=== PATIENT | male | born 1955 | race Caucasian/White ===

== ENCOUNTER 2017-07-20 13:16 | Emergency (ER) | payer OTHER ==
[~2017-07-20] VITALS: Ht 175.3 cm; Wt 71.5 kg
--- NOTE | ~2017-07-20 | CT14 ---
[facility] A Service of [facility] RADIOLOGY TEXT RESULTS PATIENT: ROBYN PATEL LOCATION: [facility] : 57 UNIT #: [id number] AGE: [address]: Clementina Bagley MD SEX: M ORDER DR: [id number] [facility] [address] [place], [place] [address] [id number] MR#: [id number] #: [id number] NAME: ROBYN PATEL : 1955 SEX: M STUDY DATE/TIME: 07/20/2017 13:49 UNIT: [facility] ROOM: STUDY DESCRIPTION: CT Angio Abdomen and Pelvis Attending Physician: Clementina Bagley M.D. Ordering Physician: Clementina Bagley M.D. Primary Care Physician: Nabil Brady M.D. MEDICAL IMAGING REPORT This report is preliminary unless electronic signature is present EXAMINATION CT angiography of the abdomen and pelvis with IV contrast. DATE 07/20/2017, at 13:49. HISTORY Abdominal aortic aneurysm with rupture on noncontrast CT abdomen earlier today. Abdominal pain, back pain for [address] abdomen and pelvis without contrast, 07/20/2017 at 12:38. PROCEDURE 2 mm axial images after IV contrast administration in the arterial phase through the abdomen and pelvis. Enteric contrast not administered. Sagittal and coronal 3-D MIP reformatted images were obtained. This CT exam was performed with one or more of the following radiation dose reduction techniques: automatic exposure control, adjustment of mA and/or kV according to patient size, and iterative reconstruction. FINDINGS ARTERIAL ANATOMY: Findings consistent with ruptured abdominal aortic aneurysm. Intramural hematoma is demonstrated along the, predominately on the left lateral and posterolateral margin of the dominant component of the aneurysm sac. The aneurysm measures approximately 8 cm craniocaudally. In the axial plane, the aneurysm measures of 7.1 x 5.3 cm. No active IV contrast extravasation is seen at this time. At the superior margin of the aneurysm sac, there is a focal ulcerative plaque or pseudoaneurysm along the left posterior margin measuring 1.8 x 1.3 cm. Extensive irregular plaquing is seen within the upper abdominal aorta infrarenal segment. [facility]. [facility] A Service of [facility] RADIOLOGY TEXT RESULTS PATIENT: ROBYN PATEL [id number] 57 UNIT #: [id number] AGE: [address]: Clementina Bagley MD SEX: M ORDER DR: There is extensive irregular mural plaquing within the proximal left common iliac artery with probable [id number] luminal stenosis. There is fusiform aneurysm of the right common iliac artery measuring 2.6 cm. Continuing external iliac arteries are patent. Suspected stenosis of the proximal left internal and external iliac arteries due to the presence of atherosclerotic plaquing. Mild atherosclerotic disease in the common femoral arteries without flow-limiting stenosis. Imaged portions of the superficial femoral and profunda femoral arteries appear patent. Celiac artery, SMA are widely patent. ANTONI appears patent. Moderate atherosclerotic plaquing of the bilateral renal arteries with mild right greater than left renal artery stenosis. Imaged portion of the distal descending thoracic aorta is normal. Lung bases are free of consolidation, but [id number] emphysematous changes are present. Extensive multiple low-density lesions are scattered throughout the left kidney and are strongly favored to represent cysts. The liver contains a single low density lesion in the medial left hepatic segment measuring 5 mm, nonspecific, favored to represent benign etiology such as a cyst or hemangioma. Gallbladder is contracted. Spleen, pancreas, adrenal glands are normal. Not mentioned above, there is a small splenic artery aneurysm in the mid splenic artery segment measuring 9 mm. Advanced diverticular changes are seen within the sigmoid colon without convincing CT evidence of acute diverticulitis at this time. ADDITIONAL PELVIS FINDINGS: Urinary bladder and rectum normal. Borderline prostatic enlargement. No acute osseous abnormalities are identified. IMPRESSION 1. Infrarenal abdominal aortic aneurysm with signs of aneurysm rupture, as described earlier on today's noncontrast CT. The findings are reconfirmed on this examination. The rupture appears to be mostly in the form of intramural hematoma along the left lateral and posterolateral wall of the mid infrarenal abdominal aorta where the aneurysm sac and contained rupture measures about 7.1 x 5.3 cm. There is no active IV contrast extravasation at this time. As previously recommended, vascular surgery consultation should be solicited. 2. Focal pseudoaneurysm or focal ulcerative plaque in the infrarenal abdominal aorta above the dominant aneurysm component, measuring 1.3 x 1.8 cm. 3. Marked irregular mural plaquing within the upper infrarenal abdominal aorta, and within the proximal left common iliac artery. STS. [facility] A Service of [facility] RADIOLOGY TEXT RESULTS PATIENT: ROBYN PATEL [id number] : 57 UNIT #: [id number] AGE: [address]: YudiFebruary SEX: M ORDER DR: 4. 2.6 cm right common iliac artery aneurysm. 5. Suspected high-grade stenosis in the distal left common iliac artery near the origins of the left internal and external iliac arteries. 6. 9 mm splenic artery aneurysm. 7. Additional incidental findings include emphysema, bilateral renal cysts, probable tiny hepatic cyst or hemangioma, colonic diverticulosis. Dictated by... Barbie Mcpherson M.D. THIS IS AN ELECTRONICALLY VERIFIED REPORT Barbie Mcpherson M.D. at 07/26/2017 8:36 AM MED/kate TD: 07/20/2017 19:18 JOB #: [id number] MEDICAL IMAGING REPORT Page 1 of 1 COPY
--- NOTE | ~2017-07-20 | EKG ---
PATIENT: ROBYN PATEL UNIT #: [id number] Ventricular Rate: 51 BPM Atrial Rate: 51 BPM P-R Interval: 204 ms QRS Duration: 88 ms Q-T Interval: 426 ms QTC Calculation(Bezet): 392 ms P [place]: 71 degrees Calculated R [place]: 73 degrees Calculated T [place]: 69 degrees Diagnosis Line: Sinus bradycardia Diagnosis Line: Otherwise normal ECG Diagnosis Line: No previous ECGs available Diagnosis Line: Confirmed by LIVIA MEJIA MD ([id number]) on 07/23/2017 Diagnosis Line: 1:51:16 PM INTERPRETING MD: JACKIE ASENCIO
[~2017-07-20 13:16] MED LIST changes: -ATORVASTATIN CA10 MG PO
[2017-07-20 13:44] LABS: BASOPHIL# 0.1 X10e3 (0-0.3); BASOPHIL% 0.7 % (0-2.5); DIFF IND NO; EOSINOPHIL# 0.1 X10e3 (0-0.7); EOSINOPHIL% 1.8 % (0.0-7.0); HEMATOCRIT 36.9 % (38.0-50.0); HEMOGLOBIN 11.7 gm/dL (13.0-16.0); LYMPHOCYTE# 1.5 X10e3 (1.0-3.5); LYMPHOCYTE% 18.7 % (17.0-45.0); MEAN CELL VOLUME 75.6 FL (83-96); MEAN CORPUSCULAR HEMOGLOBIN 23.9 PG (28-34); MEAN CORPUSCULAR HGB CONC 31.6 g/dL (30-36); MONOCYTE# 0.6 X10e3 (0-1.0); MONOCYTE% 7.2 % (3.0-12.0); NEUTROPHIL# 5.8 X10e3 (1.5-7.1); NEUTROPHIL% 71.6 % (40-75); PLATELET COUNT 276 X10e3 (140-420); RED BLOOD COUNT 4.89 X10e (3.90-5.60); RED CELL DISTRIBUTION WIDTH 19.4 % (11.0-15.5)
[2017-07-20 13:53] LABS: POC - CKMB 1.7 ng/mL (0.0-7.9); POC - TROPONIN <0.05 ng/mL (<=0.05)
[2017-07-20 13:59] LABS: PARTIAL THROMBOPLASTIN TIME 28.6 SECONDS (23.5-31.3); PROTHROMBIN TIME (PATIENT) 10.7 SECONDS (10.0-11.7)
[2017-07-20 14:12] LABS: ALBUMIN SERUM 4.5 g/dL (3.5-5.0); BILIRUBIN, DIRECT 0.1 mg/dL (0.0-0.2); BILIRUBIN,INDIRECT 0.5 mg/dL (0.0-0.9); BILIRUBIN,TOTAL 0.6 mg/dL (0.2-2.0); CALCIUM SERUM 9.3 mg/dL (8.4-10.2); GLOM FILT RATE Estimated 80.9 mL/min (>60); MAGNESIUM 2.3 mg/dL (1.6-3.0); POTASSIUM 4.3 mmol/L (3.5-5.1); PROTEIN TOTAL SERUM 7.9 g/dL (6.0-8.3)
[2017-07-20] MEDS ORDERED: ATORVASTATIN CA10 MG PO (14:23)
[2017-07-20 18:00] LABS: POC - CREATININE 1.23 mg/dL (0.64-1.27); POC - GFR >60.0 mL/min (>60)
== END 2017-07-20 15:50 | disposition short-term general hospital (02) ==
LOC: CED 13:16
PROVIDERS: Student in an Organized Health Care Education/Training Program
DX: I71.4 Abdominal aortic aneurysm, without rupture (principal); I10 Essential (primary) hypertension; M54.9 Dorsalgia, unspecified; F17.200 Nicotine dependence, unspecified, uncomplicated; Z88.5 Allergy status to narcotic agent; Z79.899 Other long term (current) drug therapy
CPT/HCPCS: 36415; 74174; 80048; 80076; 82553; 82565; 83735; 84484; 85025; 85610; 85730; 86850; 86900; 86901; 86923; 93005; 96361; 96374; 96375; 99291; J0360; J1170; J2405; Q9967

== ENCOUNTER → 2017-07-20 | Outpatient (CLI) | payer OTHER ==
[~2017-07-20] MED LIST: ATORVASTATIN CA10 MG PO; DULCOLAX5 MG; HYDROCODON-ACE1 EACH PO; LISINOPRIL10 MG PO
--- NOTE | ~2017-07-20 | CT4 ---
[facility] A Service of [facility] RADIOLOGY TEXT RESULTS PATIENT: ROBYN PATEL LOCATION: [facility] : 57 UNIT #: [id number] AGE: [address]: Nabil Brady MD SEX: M ORDER DR: [id number] [facility] [address] [place], [place] [address] [id number] O MR#: [id number] Acc #: [id number] NAME: ROBYN PATEL : 1955 SEX: M STUDY DATE/TIME: 07/20/2017 12:38 UNIT: [facility] ROOM: STUDY DESCRIPTION: CT Abd and Pelv Wo Cont Attending Physician: Nabil Brady M.D. Referring Physician: Nabil Brady M.D. Ordering Physician: Nabil Brady M.D. Primary Care Physician: Nabil Brady M.D. MEDICAL IMAGING REPORT This report is preliminary unless electronic signature is present EXAM CT abdomen and pelvis, 07/20/2017 HISTORY Abdomen pain, obstipation. Diffuse pain, back pain, pulsatile mass. TECHNIQUE CT abdomen and pelvis performed without administration of oral or intravenous contrast. This CT exam was performed with one or more of the following radiation dose reduction techniques: automatic exposure control, adjustment of mA and/or kV according to patient size, and iterative reconstruction. COMPARISON No prior CTs of abdomen and pelvis for comparison. FINDINGS Findings have been preliminarily discussed with Dr. Humphrey and Dr. Bagley at 13:10 hours on 07/20/2017. Patient escorted from the medical imaging to Emergency Room at that time. The lung bases show evidence of emphysema. Inferior heart and pericardium show coronary arterial calcifications. Liver, gallbladder, spleen, pancreas, adrenal glands unremarkable. Multiple hypodensities in the bilateral kidneys favored to represent combination of simple and complicated cysts. The largest of these on the right is in the mid to lower pole, measuring about 6.2 cm x 3.7 cm. It contains some peripheral calcifications, largest on the left in the upper pole measuring about 3 cm in diameter. It contains a thin septation with calcifications. There is a hyperdense focus in the left upper renal pole, measuring about 9 mm in diameter. Similar appearance in 2012 and favored to be a complicated cyst with proteinaceous internal fluid. Kidneys best further evaluated with ultrasound or multiphase contrast-enhanced CT. There is no STS. [facility] A Service of [facility] & [facility] RADIOLOGY TEXT RESULTS PATIENT: ROBYN PATEL LOCATION: [facility] : 57 UNIT #: [id number] AGE: [address]: Nabil Brady MD SEX: M ORDER DR: indication of hydronephrosis. There are some parenchymal calcifications in the bilateral kidneys. Possible nonobstructing lower pole calculus measuring about 4-[address] PELVIS: No inguinal adenopathy. Urinary bladder unremarkable. There is no pelvic or retroperitoneal adenopathy. Distal esophagus, stomach, small bowel, appendix, colon notable for sigmoid diverticulosis. Mild mural prominence of the distal descending and sigmoid colon without associated adjacent inflammatory change favored to reflect decompressed state of colon and probable muscular hypertrophy in the context of diverticulosis. Extensive atherosclerotic arterial calcifications. Fusiform infrarenal abdominal aortic aneurysm measuring 4.9 cm x 6.7 cm. Extends over a craniocaudal extent of approximately 8 cm. Ill-defined haziness along its left lateral and posterolateral aspect with irregular intimal calcification and some hyperdense material along the left lateral aspect of the aneurysm sac. Loss of fat plane between adjacent psoas muscle on the left and the aneurysm sac. Findings are strongly concerning for aneurysm leakage. I do not see gerri rupture but the appearance raises strong concern for possible impending rupture. The vascular surgery consultation strongly recommended. CT angiography recommended, if patient has a candidate and if it would assist in management at this time. Much of the aneurysm sac shows relatively continuous intimal calcification. Along the left lateral and posterolateral aspect, the intimal calcification is irregular and discontinuous, further raising concern for aneurysm leakage and/or conceivably contained rupture. The aneurysm sac terminates at the level of the aortic bifurcation. There is aneurysmal dilatation of the right common iliac artery measuring up to 2.6 cm in diameter. Extensive atherosclerotic arterial calcification in the common iliac arteries. The internal and external iliac arteries appear of overall normal caliber with mild to moderate atherosclerotic calcification in the distal external iliac arteries and moderate atherosclerotic calcification in the bilateral common femoral arteries. The bony structures show no acute abnormality. Degenerative changes in the spine. IMPRESSION 1. Abnormal examination. See complete dictation above for full details. Findings discussed directly by telephone with Dr. Humphrey and Dr. Bagley immediately prior to this dictation. Patient escorted from medical imaging to Emergency Room prior to this dictation. 2. The patient has a large infrarenal abdominal aneurysm. The aneurysm sac measures approximately 4.9 cm x 6.7 cm transversely and extends over a craniocaudal extent of approximately 8 cm. Haziness in the fat adjacent to the left lateral and posterolateral aspect of the aneurysm sac with loss of fat plane between aneurysm sac and adjacent psoas muscle and concerning irregularity/gapping and intimal STS. [facility] A Service of [facility] RADIOLOGY TEXT RESULTS PATIENT: ROBYN PATEL LOCATION: [facility] : 57 UNIT #: [id number] AGE: [address]: Nabil Brady MD SEX: M ORDER DR: calcifications. Constellation of findings raises concern for at least aneurysm leakage and potentially contained rupture along the left posterolateral and lateral aspect of the aneurysm sac. I see no indication of free rupture. Vascular surgery consultation is strongly recommended. If the patient is a candidate and it would assist in management at this time, CT angiography would be recommended as well. 3. Aneurysmal dilatation of the right common iliac artery, measuring up to 2.6 cm in diameter. 4. Emphysema. 5. Multiple bilateral renal cysts. See claims customer service representative sizes and locations in body of report above. Some of these appear to be mildly complicated. There is a small hyperdense nodule in the upper pole of the left kidney unchanged from 2012 and favored to be a complicated cyst with internal products of hemorrhage or proteinaceous fluid. 6. Uncomplicated sigmoid diverticulosis. Mild mural prominence, distal descending colon and sigmoid colon with no adjacent inflammatory change favored to reflect decompressed state of colon and underlying muscular hypertrophy in the context of diverticulosis. Please see remainder of incidental findings in body of report above. Dictated by... Carlton Choudhary M.D. THIS IS AN ELECTRONICALLY VERIFIED REPORT Carlton Choudhary M.D. at 07/24/2017 8:01 AM CHRISTIN/layne TD: 07/20/2017 16:48 JOB #: [id number] MEDICAL IMAGING REPORT Page 1 of 1 COPY
== END | disposition home or self-care (01) ==
LOC: CCAT 11:53
DX: R10.9 Unspecified abdominal pain (principal); K59.00 Constipation, unspecified; R19.00 Intra-abdominal and pelvic swelling, mass and lump, unspecified site; R93.5 Abnormal findings on diagnostic imaging of other abdominal regions, including retroperitoneum; I71.4 Abdominal aortic aneurysm, without rupture; I72.3 Aneurysm of iliac artery; Q61.02 Congenital multiple renal cysts; K57.30 Diverticulosis of large intestine without perforation or abscess without bleeding; J43.9 Emphysema, unspecified; I25.10 Atherosclerotic heart disease of native coronary artery without angina pectoris; N28.89 Other specified disorders of kidney and ureter; I70.8 Atherosclerosis of other arteries; I70.203 Unspecified atherosclerosis of native arteries of extremities, bilateral legs; M47.899 Other spondylosis, site unspecified
CPT/HCPCS: 74176